=== PATIENT | female | born 1955 | race Caucasian/White ===

== ENCOUNTER 2018-01-19 16:10 | Emergency (ER) | payer BC, SELFPAY ==
[2018-01-19 16:12] VITALS: BP 125/72; PULSE 82; RESP 17; TEMP 36.6; O2SAT 99; BMI 22.3
--- NOTE | 2018-01-19 16:55 | RAD_ITS ---
STUDY: X-RAY - LEFT KNEE REASON FOR EXAM: Female, 62 years old. Trauma TECHNIQUE: 3 view(s) of the knee. COMPARISON: None. FINDINGS: There are minimally displaced fractures of the medial and lateral tibial plateaus. The remainder the visualized osseous structures are intact. There is a small joint effusion. There are no radiodense foreign bodies. RAD/Knee 4 or More Views IMPRESSION: Minimally displaced fractures of the medial and lateral tibial plateaus. Small joint effusion. Electronically Signed: Krishna Pyle, at 17:20 EDT Tel , Service support ,
--- NOTE | 2018-01-19 18:47 | CT_ITS ---
STUDY: CT LEFT extremity REASON FOR EXAM: Female, 62 years old. Fracture follow-up RADIATION DOSAGE (If Supplied By Facility): CTDIvol = ( 15.35 ) mGy, DLP = ( 549.49 ) mGycm. Individualized dose optimization techniques were used for this CT.? TECHNIQUE: Multiplanar CT imaging of the left lower extremity was performed COMPARISON: Left knee radiograph from January 19, 2018 Comminuted intra-articular fracture of the lateral tibial plateau with approximately 4 to 5 mm depression seen. Fracture extends into the tibial spine as well as the medial tibial plateau. Fibular head neck junction appears unremarkable. Hemarthrosis seen. Quadricep tendon as well as the patellar tendons are intact. Anterior cruciate ligament is not well seen. The posterior cruciate ligament appears intact. IMPRESSION: Severely comminuted intra-articular depressed fracture of the lateral tibial plateau with extension into the tibial spine as well as the medial tibial plateau Electronically Signed: Surya Bauer, at 19:47 EDT Tel , Service support , CT/Extremity Lower without Contra
--- NOTE | 2018-01-19 19:56 | ED.VISSUMM ---
- ER Visit Summary Date of Service: 01/19/18 Chief Complaint: Left knee pain History of Present Illness: The patient is a 62 F who presents with acute left knee pain. She was on a ladder. She believes she may have been about 5 rungs up. She was trying to get a box off of a shelf and was sliding this down run by wrong on the ladder. She fell and landed on her buttocks and then the box landed directly onto her left knee. She estimates that the box weighed approximately 20 pounds. She denies any other injuries. There was no head injury no loss of consciousness she denies chest pain shortness of breath abdominal pain back pain or injury to any other extremities Physical Examination: Afebrile vitals are within normal limits Heart regular rate and rhythm Lungs are clear Abdomen soft Patient is limited painful range of motion at the left knee but extensor mechanism is intact there is a positive effusion she has intact distal pulses with brisk capillary refill and normal sensation she has active full range of motion without pain of the right lower and bilateral upper extremities GCS of 15 with no focal or lateralizing neurological deficits Test Results: Right knee x-ray shows minimally displaced medial and lateral tibial plateau fractures. CT of the lower extremity shows severely comminuted intra-articular depressed lateral tibial plateau fracture with extension into the tibial spine and medial plateau. Emergency Department Course and Treatment: Patient really declined any analgesics. After the x-ray I spoke to Dr. Quinones, orthopedic surgery blender conveyor operator who requested a CT. Patient then asked if she could just take some Tylenol but did not want anything stronger. She states she had Tylenol with her and asked if she could just take this which she did. CT as above. Dr Quinones called back and asked that we place the patient in a knee immobilizer and have her follow-up as an outpatient. Was given a prescription for [place] for acute pain control if needed and she understands to return for new or worsening symptoms and was instructed on specific signs and symptoms to monitor for. She was discharged. Treatment Plan: [] Disposition: Discharge Impression: Left tibial plateau fracture This note was generated with [employer] dictation software. It may contain incorrect words, spelling, and punctuation that were not noted in review of the chart prior to signing ED Disposition - Plan for ED Patient: Chief Complaint: Lower Extremity Injury Referrals: Breezy Alegre MD [Primary Care Provider] -
--- NOTE | 2018-01-19 20:02 | ED.DCSUM_ITS ---
- ER Visit Summary Date of Service: 01/19/18 Chief Complaint: Left knee pain History of Present Illness: The patient is a 62 F who presents with acute left knee pain. She was on a ladder. She believes she may have been about 5 rungs up. She was trying to get a box off of a shelf and was sliding this down run by wrong on the ladder. She fell and landed on her buttocks and then the box landed directly onto her left knee. She estimates that the box weighed approximately 20 pounds. She denies any other injuries. There was no head injury no loss of consciousness she denies chest pain shortness of breath abdominal pain back pain or injury to any other extremities Physical Examination: Afebrile vitals are within normal limits Heart regular rate and rhythm Lungs are clear Abdomen soft Patient is limited painful range of motion at the left knee but extensor mechanism is intact there is a positive effusion she has intact distal pulses with brisk capillary refill and normal sensation she has active full range of motion without pain of the right lower and bilateral upper extremities GCS of 15 with no focal or lateralizing neurological deficits Test Results: Right knee x-ray shows minimally displaced medial and lateral tibial plateau fractures. CT of the lower extremity shows severely comminuted intra-articular depressed lateral tibial plateau fracture with extension into the tibial spine and medial plateau. Emergency Department Course and Treatment: Patient really declined any analgesics. After the x-ray I spoke to Dr. Quinones, orthopedic surgery media monitor who requested a CT. Patient then asked if she could just take some Tylenol but did not want anything stronger. She states she had Tylenol with her and asked if she could just take this which she did. CT as above. Dr Quinones called back and asked that we place the patient in a knee immobilizer and have her follow- up as an outpatient. Was given a prescription for [place] for acute pain control if needed and she understands to return for new or worsening symptoms and was instructed on specific signs and symptoms to monitor for. She was discharged. Treatment Plan: [] Disposition: Discharge Impression: Left tibial plateau fracture This note was generated with [employer] dictation software. It may contain incorrect words, spelling, and punctuation that were not noted in review of the chart prior to signing ED Disposition - Plan for ED Patient: Chief Complaint: Lower Extremity Injury Referrals: Breezy Alegre MD [Primary Care Provider] -
--- NOTE | 2018-01-19 20:02 | ED.DEP ---
ED Disposition - Plan for ED Patient: Chief Complaint: Lower Extremity Injury Instructions: ED Fx Lower Ext Prescriptions: Hydrocodone Bitart/Apap 5-325 [[place] 5MG-325MG] 1 tab PO Q6H PRN PRN 3 Days #10 tab PRN Reason: Pain Referrals: Breezy Alegre MD [Primary Care Provider] -
--- NOTE | 2018-01-19 20:04 | ED.DEP ---
ED Disposition - Plan for ED Patient: Chief Complaint: Lower Extremity Injury Instructions: ED Fx Lower Ext Prescriptions: Hydrocodone Bitart/Apap 5-325 [[place] 5MG-325MG] 1 tab PO Q6H PRN PRN 3 Days #10 tab PRN Reason: Pain Referrals: Breezy Alegre MD [Primary Care Provider] - Krishna Quinones MD [STAFF PHYSICIAN] -
[2018-01-19 20:20] VITALS: BP 120/75; PULSE 77; RESP 16; O2SAT 99
== END 2018-01-19 20:25 | disposition home or self-care (01) ==
PROVIDERS: Emergency Provider Emergency Medicine
DX: S82.142A Displaced bicondylar fracture of left tibia, initial encounter for closed fracture (principal); F32.9 Major depressive disorder, single episode, unspecified; Z79.899 Other long term (current) drug therapy; W11.XXXA Fall on and from ladder, initial encounter; Y93.89 Activity, other specified; Y92.009 Unspecified place in unspecified non-institutional (private) residence as the place of occurrence of the external cause; Y99.8 Other external cause status
CPT/HCPCS: 73564; 73700; 99283